=== PATIENT | female | born 1935 | race Native Hawaiian/Other Pacific Islander ===

== ENCOUNTER 2016-07-15 07:56 | Outpatient (CLI) | payer OTHER ==
[~2016-07-15 07:56] MED LIST: ALEVE220 MG OR; ASPIR-8181 MG OR; GLIM4TAB PO; HYZAAR1 TA1 PO; INSU100I2 SC; LIPITOR40 MG PO; NEURONTIN 100M100 MG OR; NEXIUM40 M1 PO; VITAMIN C1 CH1 PO
== END 2016-07-15 19:10 | disposition home or self-care (01) ==
LOC: CT 07:56
DX: Z12.31 Encounter for screening mammogram for malignant neoplasm of breast (principal); E11.9 Type 2 diabetes mellitus without complications
CPT/HCPCS: 36415; 82565; 84520; G0202-TC; Q9963

== ENCOUNTER 2016-10-07 08:04 | Outpatient (CLI) | payer OTHER | END 2016-10-07 19:47 | disposition home or self-care (01) | LOC: LABW 08:04 | DX: E10.9 Type 1 diabetes mellitus without complications (principal) | CPT/HCPCS: 36415; 83036 ==

== ENCOUNTER 2017-01-13 07:40 | Outpatient (CLI) | payer OTHER | END 2017-01-13 19:13 | disposition home or self-care (01) | LOC: LABW 07:40 | DX: E10.9 Type 1 diabetes mellitus without complications (principal) | CPT/HCPCS: 36415; 83036 ==

== ENCOUNTER 2017-05-17 08:27 | Outpatient (CLI) | payer OTHER ==
[2017-05-17 08:49] LABS: PLATELET COUNT 215 K/uL (152-353)
[2017-05-17 09:14] LABS: POTASSIUM 3.7 mmol/L (3.6-5.2); SODIUM 139 mmol/L (136-145)
== END 2017-05-17 19:02 | disposition home or self-care (01) ==
LOC: LABW 08:27
PROVIDERS: Internal Medicine Endocrinology, Diabetes & Metabolism
DX: E10.9 Type 1 diabetes mellitus without complications (principal); I10 Essential (primary) hypertension; E11.9 Type 2 diabetes mellitus without complications
CPT/HCPCS: 36415; 80053; 80061; 83036; 84436; 84443; 85027

== ENCOUNTER 2017-09-14 08:22 | Outpatient (CLI) | payer OTHER | END 2017-09-14 18:12 | disposition home or self-care (01) | LOC: LABW 08:22 | DX: E10.9 Type 1 diabetes mellitus without complications (principal) | CPT/HCPCS: 36415; 83036 ==

== ENCOUNTER 2017-12-06 09:43 | Outpatient (CLI) | payer OTHER ==
[2017-12-06 10:34] LABS: PLATELET COUNT 200 K/uL (152-353)
[2017-12-06 11:10] LABS: POTASSIUM 4.4 mmol/L (3.6-5.2)
== END 2017-12-06 22:48 | disposition home or self-care (01) ==
LOC: LABW 09:43
PROVIDERS: Internal Medicine
DX: I10 Essential (primary) hypertension (principal); N95.8 Other specified menopausal and perimenopausal disorders; E11.9 Type 2 diabetes mellitus without complications
CPT/HCPCS: 80053; 80061; 84436; 84443; 85027

== ENCOUNTER 2018-06-17 08:25 | Emergency (ER) | payer OTHER ==
[~2018-06-17] VITALS: Ht 162.6 cm; Wt 97.1 kg
[2018-06-17 09:09] LABS: PLATELET COUNT 206 K/uL (152-353)
[2018-06-17 09:18] LABS: POTASSIUM 4.4 mmol/L (3.6-5.2)
[2018-06-17 09:40] VITALS: BP 130/58; TEMP 97.9
== END 2018-06-17 09:41 | disposition home or self-care (01) ==
LOC: ED 08:25
PROVIDERS: Internal Medicine
DX: N30.80 Other cystitis without hematuria (principal); R10.84 Generalized abdominal pain; M54.5 Low back pain
CPT/HCPCS: 36415; 80053; 81000; 85027; 87077; 87086; 87088; 87186; 99283

== ENCOUNTER 2018-11-20 10:32 | Outpatient (CLI) | payer OTHER ==
[2018-11-20 10:53] LABS: PLATELET COUNT 186 K/uL (152-353)
[2018-11-20 11:13] LABS: POTASSIUM 5.7 mmol/L (3.6-5.2)
== END 2018-11-20 22:21 | disposition home or self-care (01) ==
LOC: LABW 10:32
PROVIDERS: Specialist
DX: Z01.810 Encounter for preprocedural cardiovascular examination (principal); R00.1 Bradycardia, unspecified
CPT/HCPCS: 36415; 80053; 85027

== ENCOUNTER 2019-06-25 08:57 | Outpatient (CLI) | payer OTHER | END 2019-06-25 21:40 | disposition home or self-care (01) | LOC: CT 08:57 | DX: N28.1 Cyst of kidney, acquired (principal); N20.0 Calculus of kidney ==

== ENCOUNTER 2020-01-20 10:58 | Emergency (ER) | payer OTHER ==
[~2020-01-20] VITALS: Ht 162.6 cm; Wt 97.1 kg
[2020-01-20 12:12] LABS: PLATELET COUNT 197 K/uL (152-353)
[2020-01-20 12:29] LABS: POTASSIUM 4.2 mmol/L (3.6-5.2)
[2020-01-20 13:21] VITALS: BP 154/49; TEMP 98.9
== END 2020-01-20 13:22 | disposition home or self-care (01) ==
LOC: ED 10:58
PROVIDERS: Hospitalist
DX: R10.31 Right lower quadrant pain (principal); N30.90 Cystitis, unspecified without hematuria; R11.2 Nausea with vomiting, unspecified
CPT/HCPCS: 36415; 80053; 81000; 83690; 85027; 96360; 96361; 96375; 99284; J1885; J2405

== ENCOUNTER 2020-01-25 10:26 | Outpatient (CLI) | payer OTHER | END 2020-01-25 19:59 | disposition home or self-care (01) | LOC: MAMMO 10:26 | DX: Z12.31 Encounter for screening mammogram for malignant neoplasm of breast (principal) ==

== ENCOUNTER 2020-02-04 09:26 | Outpatient (CLI) | payer OTHER | END 2020-02-04 19:15 | disposition home or self-care (01) | LOC: LABW 09:26 | DX: G60.8 Other hereditary and idiopathic neuropathies (principal); Z79.899 Other long term (current) drug therapy | CPT/HCPCS: 36415; 82607; 82784; 84165; 84207; 84425; 84443 ==

== ENCOUNTER 2020-06-20 10:24 | Emergency (ER) | payer OTHER ==
[~2020-06-20] VITALS: Ht 162.6 cm; Wt 97.1 kg
[2020-06-20 10:34] VITALS: TEMP 97.6
[2020-06-20 10:59] LABS: PLATELET COUNT 282 K/uL (152-353)
[2020-06-20 11:30] LABS: POTASSIUM 4.6 mmol/L (3.6-5.2)
[2020-06-20 13:04] VITALS: BP 160/58
== END 2020-06-20 13:22 | disposition home or self-care (01) ==
LOC: ED 10:24
PROVIDERS: Hospitalist
PROC: 0T9B70Z Drainage of Bladder with Drainage Device, Via Natural or Artificial Opening (ICD-10-PCS; principal; 2020-06-20)
DX: K59.09 Other constipation (principal); R33.8 Other retention of urine; Z98.890 Other specified postprocedural states
CPT/HCPCS: 36415; 80053; 81000; 85027; 96360; 96365; 96375; 99284; J0696; J1885; J2405

== ENCOUNTER 2020-07-29 09:37 | Inpatient (IN) | payer OTHER ==
[2020-07-29] VITALS (19 sets, daily range): BP systolic 138–206; BP diastolic 48–80; TEMP 97.8
[~2020-07-29] VITALS: Ht 162.6 cm; Wt 94.5 kg
[2020-07-29 10:31] LABS: PLATELET COUNT 181 K/uL (152-353)
[2020-07-29 10:38] LABS: POTASSIUM 4.2 mmol/L (3.6-5.2); SODIUM 140 mmol/L (136-145)
[2020-07-30] VITALS (7 sets, daily range): BP systolic 148–197; BP diastolic 43–76; TEMP 97.8–98.6; Ht 162.6 cm; Wt 94.5 kg
[2020-07-30 05:34] LABS: PLATELET COUNT 181 K/uL (152-353)
[2020-07-30 05:58] LABS: POTASSIUM 4.5 mmol/L (3.6-5.2)
[2020-07-30] MEDS ORDERED: LANTUS100 UNIT/M SC (08:24)
[2020-07-30] MEDS ORDERED: HUMALOG KW100 UNIT/M SC (08:25)
[2020-07-31] VITALS: BP 148/52; TEMP 98.1
[2020-07-31 03:49] VITALS: BP 175/47; TEMP 98.3
[2020-07-31 05:47] LABS: PLATELET COUNT 184 K/uL (152-353)
[2020-07-31 06:19] LABS: POTASSIUM 4.2 mmol/L (3.6-5.2)
[2020-07-31 08:00] VITALS: BP 110/63; TEMP 97.9
[2020-07-31 12:00] VITALS: BP 132/42; TEMP 98.9
[2020-07-31 16:00] VITALS: BP 172/59; TEMP 97.9
[2020-07-31 20:00] VITALS: BP 139/52; BP 159/52; TEMP 98.8
[2020-08-01 00:12] VITALS: BP 118/35; TEMP 98
[2020-08-01 04:27] VITALS: BP 140/41; TEMP 98.1
[2020-08-01 05:49] LABS: PLATELET COUNT 175 K/uL (152-353)
[2020-08-01 05:59] LABS: POTASSIUM 3.9 mmol/L (3.6-5.2)
[2020-08-01 08:00] VITALS: BP 117/42; TEMP 97.8
[2020-08-01 12:00] VITALS: BP 128/56; TEMP 98.1
== END 2020-08-01 15:30 | disposition home or self-care (01) | DRG 149 ==
LOC: ED 09:37 → MED/SURG 18:45
PROVIDERS: Family Medicine; ADMIT Internal Medicine; ATTEND Internal Medicine
DX: H81.10 Benign paroxysmal vertigo, unspecified ear (principal); N39.0 Urinary tract infection, site not specified; I10 Essential (primary) hypertension; E78.49 Other hyperlipidemia; K21.9 Gastro-esophageal reflux disease without esophagitis; E11.42 Type 2 diabetes mellitus with diabetic polyneuropathy
CPT/HCPCS: 36415; 80053; 81000; 82550; 82948; 84132; 84484; 85027; 87077; 87086; 87088; 87185; 87186; 93005; 96365; 96366; 96372; 96374; 96375; 96376; 99284; J0696; J1815; J2405; J3490

== ENCOUNTER 2020-10-23 10:18 | Outpatient (CLI) | payer OTHER ==
[~2020-10-23 10:18] MED LIST changes: +HUMALOG KW100 UNIT/M SC; +LANTUS100 UNIT/M SC
[2020-10-23 10:42] LABS: PLATELET COUNT 191 K/uL (152-353)
[2020-10-23 11:00] LABS: POTASSIUM 4.8 mmol/L (3.6-5.2)
== END 2020-10-23 19:25 | disposition home or self-care (01) ==
LOC: LAB 10:18
PROVIDERS: ATTEND Nurse Practitioner Family
DX: E11.40 Type 2 diabetes mellitus with diabetic neuropathy, unspecified (principal); I10 Essential (primary) hypertension; I48.91 Unspecified atrial fibrillation; E53.8 Deficiency of other specified B group vitamins; R00.1 Bradycardia, unspecified; N39.0 Urinary tract infection, site not specified
CPT/HCPCS: 80053; 80061; 82607; 82746; 83036; 84436; 84443; 85027

== ENCOUNTER 2021-01-13 08:30 | Emergency (ER) | payer OTHER ==
[~2021-01-13] VITALS: Ht 162.6 cm; Wt 95.3 kg
[2021-01-13 08:35] VITALS: TEMP 97.4
[2021-01-13 09:26] LABS: PLATELET COUNT 181 K/uL (152-353)
[2021-01-13 09:31] LABS: POTASSIUM 4.3 mmol/L (3.6-5.2); SODIUM 138 mmol/L (136-145)
[2021-01-13 09:41] LABS: PARTIAL THROMBOPLASTIN TIME 23.6 SECONDS (24.5-33.6)
[2021-01-13 10:40] VITALS: BP 148/59
== END 2021-01-13 10:40 | disposition home or self-care (01) ==
LOC: ED 08:30
PROVIDERS: Family Medicine
DX: I10 Essential (primary) hypertension (principal); R42 Dizziness and giddiness; I48.91 Unspecified atrial fibrillation
CPT/HCPCS: 80053; 84484; 85027; 85610; 85730; 93005; 99284

== ENCOUNTER 2021-12-16 07:00 | Emergency (ER) | payer OTHER ==
[~2021-12-16] VITALS: Ht 162.6 cm; Wt 95.3 kg
[2021-12-16 07:12] VITALS: TEMP 98.2
[2021-12-16 07:44] VITALS: BP 148/51
[2021-12-16 07:50] LABS: PLATELET COUNT 195 K/uL (152-353)
[2021-12-16 07:56] LABS: POTASSIUM 4.1 mmol/L (3.6-5.2)
[2021-12-16 08:07] LABS: PARTIAL THROMBOPLASTIN TIME 24.7 SECONDS (24.5-33.6)
[2021-12-16] MEDS ORDERED: PHEN100T3 PO (08:41)
== END 2021-12-16 09:52 | disposition still patient (30) ==
LOC: ED 07:08
PROVIDERS: Emergency Medicine
DX: R10.13 Epigastric pain (principal); R30.0 Dysuria; K43.9 Ventral hernia without obstruction or gangrene; R06.02 Shortness of breath
CPT/HCPCS: 80053; 81002; 83880; 84484; 85027; 85610; 85730; 93005; 96372; 99283; J0696; Q9963

== ENCOUNTER 2022-04-21 23:42 | Inpatient (IN) | payer OTHER ==
[~2022-04-21] VITALS: Ht 160 cm; Wt 87.2 kg
[~2022-04-21 23:42] MED LIST changes: -ASPIR-8181 MG OR; +ASPIRIN/ENTERIC81 MG PO; +PHEN100T3 PO
[2022-04-21 23:45] VITALS: BP 168/58; TEMP 98.5
[2022-04-22] VITALS (9 sets, daily range): BP systolic 119–176; BP diastolic 37–65; TEMP 97.2–98.6; Ht 160 cm; Wt 87.2 kg
[2022-04-22 00:20] LABS: PLATELET COUNT 233 K/uL (152-353)
[2022-04-22 07:08] LABS: PLATELET COUNT 201 K/uL (152-353)
[2022-04-22 08:11] LABS: POTASSIUM 4.5 mmol/L (3.6-5.2)
[2022-04-22] MEDS ORDERED: TIZA4TAB5 PO (12:00)
[2022-04-22] MEDS ORDERED: ULTRACET1 TAB PO (12:02)
[2022-04-22] MEDS ORDERED: CLON0.1T16 PO (12:03)
[2022-04-22] MEDS ORDERED: NAPROXEN SODIU500 M1 PO (12:03)
[2022-04-22] MEDS ORDERED: LANTUS SOL100 UNIT/M SC (12:03)
[2022-04-22] MEDS ORDERED: OZEMPIC2 MG/1.5 M SC (12:05)
[2022-04-22] MEDS ORDERED: DIOVAN HCT160 MG/25 PO (12:06)
[2022-04-22] MEDS ORDERED: OMEP40CA PO (12:07)
[2022-04-22] MEDS ORDERED: CLOP75TA2 PO (12:07)
[2022-04-22] MEDS ORDERED: HUMALOG KW100 UNIT/M SC (12:08)
[2022-04-22] MEDS ORDERED: LIPITOR40 MG PO (12:08)
[2022-04-22] MEDS ORDERED: PAIN RELIEF EX500 M1 PO (12:56)
[2022-04-22] MEDS ORDERED: REFRESH OPTH (12:58)
[2022-04-22] MEDS ORDERED: [UNRECOGNIZED DRUG - CODE] PO (12:58)
[2022-04-22] MEDS ORDERED: GABA300C2 PO (12:59)
[2022-04-22 14:59] LABS: POTASSIUM 4.5 mmol/L (3.6-5.2)
[2022-04-23 04:01] VITALS: BP 173/74; TEMP 97.9
[2022-04-23 04:23] LABS: PLATELET COUNT 211 K/uL (152-353)
[2022-04-23 05:17] LABS: POTASSIUM 4.1 mmol/L (3.6-5.2)
[2022-04-23 08:00] VITALS: BP 152/74; TEMP 97.8
== END 2022-04-23 11:35 | disposition home or self-care (01) | DRG 392 ==
LOC: ED 23:42 → MED/SURG 04-22 03:15
PROVIDERS: ADMIT Emergency Medicine; ATTEND Internal Medicine
DX: K52.89 Other specified noninfective gastroenteritis and colitis (principal); E87.1 Hypo-osmolality and hyponatremia; I10 Essential (primary) hypertension; R51.9 Headache, unspecified; I48.91 Unspecified atrial fibrillation; R11.2 Nausea with vomiting, unspecified; E11.65 Type 2 diabetes mellitus with hyperglycemia; E11.40 Type 2 diabetes mellitus with diabetic neuropathy, unspecified
CPT/HCPCS: 36415; 80048; 80053; 81002; 82533; 83930; 83935; 84133; 84300; 84443; 85027; 87502; 87635; 93005; 96360; 96374; 99284; J1650; J2405; U0003